=== PATIENT | female | born 1930 | race Hispanic/Latino ===

== ENCOUNTER 2019-06-27 09:30 | Outpatient (CLI) | payer MEDICARE ==
--- NOTE | 2019-06-27 10:31 | Mammography Report ---
DIGITAL SCREENING MAMMOGRAM WITH CAD, 06/27/2019 INDICATION: Routine screening mammography. TECHNIQUE: Digital bilateral 2D mammography was obtained in the craniocaudal and mediolateral obliq ue projections. This examination was interpreted with the benefit of Computer-Aided Detection analysi s. COMPARISON: 06/22/2018 FINDINGS: Breast Density: The breasts are heterogeneously dense, which may obscure small masses. There is no evidence of dominant mass, suspicious calcifications or architectural distortion in eithe r breast. IMPRESSION: No mammographic evidence of malignancy. Follow up recommendation: Routine yearly BI-RADS Category 2: Benign. A "normal" or negative report should not discourage follow up or biopsy of a clinically significant f inding. A written summary of these findings will be mailed to the patient. The patient will be entered into a mammography reporting system which will generate a reminder letter for the patient's next appointmen t at the appropriate interval. The [employer] recommends yearly mammograms starting at age 40 and continuing as l brent as a woman is in good health. Breast MRI is recommended for women with an approximate 20-25% or greater lifetime risk of breast cancer, including women with a strong family history of breast or ova gabrielle cancer or who have been treated for Hodgkin's disease. Signer Name: Jacob Garnett MD Signed: 06/27/2019 10:26 AM Workstation Name: [id number]
== END 2019-06-27 09:31 | disposition home or self-care (01) ==
LOC: SPVWC 09:30
PROVIDERS: ATTEND Surgery
DX: Z12.31 Encounter for screening mammogram for malignant neoplasm of breast (principal)
CPT/HCPCS: 77067

== ENCOUNTER 2020-07-02 12:54 | Outpatient (CLI) | payer MEDICARE ==
--- NOTE | 2020-07-02 14:44 | Mammography Report ---
DIGITAL SCREENING MAMMOGRAM WITH CAD, 07/02/2020 CLINICAL INFORMATION / INDICATION: Routine screening mammography. SCREENING MAMMO TECHNIQUE: Digital bilateral 2D mammography was obtained in the craniocaudal and mediolateral obliqu e projections. This examination was interpreted with the benefit of Computer-Aided Detection analysis . COMPARISON: 08/05/2016 through 09/12/20162019. FINDINGS: Breast Density: There are scattered areas of fibroglandular density. No dominant mass or suspicious calcifications in the left breast. There is bilateral breast scarring. A 1.2 cm oval circumscribed nodule in the right central breast inferolaterally to the central axis i n the middle depth 2 cm from the nipple is new or significantly larger. No other change. IMPRESSION: 1.2 cm right breast nodule. Right breast ultrasound is recommended for further evaluation . Follow up recommendation: Ultrasound BI-RADS Category 0: Incomplete. Needs additional imaging evaluation and/or prior mammograms for [place]. A "normal" or negative report should not discourage follow up or biopsy of a clinically significant f inding. A written summary of these findings will be mailed to the patient. The patient will be entered into a mammography reporting system which will generate a reminder letter for the patient's next appointmen t at the appropriate interval. The [employer] recommends yearly mammograms starting at age 40 and continuing as l brent as a woman is in good health. Breast MRI is recommended for women with an approximate 20-25% or greater lifetime risk of breast cancer, including women with a strong family history of breast or ova gabrielle cancer or who have been treated for Hodgkin's disease. Signer Name: Lucas Johnson MD Signed: 07/02/2020 2:39 PM Workstation Name: [email or web address]
== END 2020-07-02 12:55 | disposition home or self-care (01) ==
LOC: SPVWC 12:54
PROVIDERS: ATTEND Surgery
DX: Z12.31 Encounter for screening mammogram for malignant neoplasm of breast (principal); N63.10 Unspecified lump in the right breast, unspecified quadrant
CPT/HCPCS: 77067

== ENCOUNTER 2020-07-17 12:43 | Outpatient (CLI) | payer MEDICARE ==
--- NOTE | 2020-07-17 13:53 | Ultrasound Report ---
ULTRASOUND BREAST RIGHT LIMITED, 07/17/2020 CLINICAL INFORMATION / INDICATION: INCONCLUSIVE MAMMOGRAM. Patient presents as a callback from screen ing mammogram for further evaluation of a nodular density in the right breast. TECHNIQUE: Targeted ultrasound evaluation was performed of the area of interest. COMPARISON: Prior mammogram 07/02/2020 FINDINGS: Targeted ultrasound of the 8:30 through 9:30 position of the right breast reveals several subcentimet er benign simple and complicated cysts. One of these, a 10 mm benign cyst in the 8:30 position locate d 4 cm from the nipple, accounts for the recent mammographic finding. No suspicious sonographic abnor mality identified. IMPRESSION: 1. Several benign cysts in the right breast, one of which accounts for the mammographic finding. No s uspicious sonographic abnormality identified. Follow up recommendation: Routine yearly BI-RADS Category 2: Benign. A normal or "negative" report should not preclude biopsy or follow-up of a clinically suspicious find ing. Signer Name: Fani Gamble MD Signed: 07/17/2020 1:48 PM Workstation Name: [email or web address]
== END 2020-07-17 12:44 | disposition home or self-care (01) ==
LOC: SPVWC 12:43
PROVIDERS: ATTEND Surgery
DX: N60.01 Solitary cyst of right breast (principal)